=== PATIENT | male | born 1955 | race Caucasian/White ===

== ENCOUNTER 2018-04-26 05:24 | Inpatient (IN) ==
--- NOTE | 2018-04-11 08:43 | PAT Medication Instructions ---
Medication Instructions Date of Service April 11, 2018 Home Medications atorvastatin 20 mg PO QAM celecoxib [Celebrex] 100 mg PO NEEDED epinephrine [EpiPen] 1 dose IM NEEDED sumatriptan succinate [Imitrex] 1 dose PO NEEDED Continue as directed epinephrine [EpiPen] 1 dose IM NEEDED ASK your prescriber and surgeon celecoxib [Celebrex] 100 mg PO NEEDED DO NOT take the morning of surgery sumatriptan succinate [Imitrex] 1 dose PO NEEDED Take morning of surgery With a small sip of water, OTHERWISE NOTHING TO EAT OR DRINK AFTER MIDNIGHT: atorvastatin 20 mg PO QAM Other Notes If you have any questions please call us at [phone] or [phone] or [phone] or [phone]
--- NOTE | 2018-04-11 09:57 | Anesthesiology Consultation ---
Date of Service April 11, 2018 Assessment & Plan (1) Encounter for pre-operative examination: Chart Review Chart Review: Acceptable Risk for Surgery and Patient seen in Pre Admission Testing Consults Requested medical (Dr. Pascal (04/19)) Per note from PCP, patient was seen on 04/19/18 and "found the patient to be medically stable for this procedure and anesthetic agent. I have reviewed his lab work, ECG, and CXR and all look suitable at this time to proceed with his surgery." Teaching & Discussion Pre-Anesthesia Teaching/Discussion Notes: Instructed NPO after midnight before surgery, except medications with 15 cc of water. Medication instructions provided according to the PAT guidelines. History Surgery Operation Date: 04/26/18 07:30 Proposed Procedures p Robotic Prostatectomy Possible Lymphnode Dissection and Suprapubic Tube Placement - Joseph Dwyer MD Height/Weight Height: 5 ft 8 in Weight: 83.2 kg Allergies Allergy/AdvReac Type Severity Reaction Status Date / Time venom-honey bee Allergy Severe Anaphylaxis Verified 04/11/18 10:02 naproxen [From Aleve] Allergy Unknown FACIAL Verified 04/04/18 11:42 SWELLING Medications Home Medications Medication Instructions Recorded Confirmed Last Taken atorvastatin 20 mg PO QAM 04/04/18 04/04/18 04/04/18 celecoxib [Celebrex] 100 mg PO UD PRN 04/04/18 04/04/18 Unknown epinephrine [EpiPen] 1 dose IM UD PRN 04/04/18 04/04/18 Unknown sumatriptan succinate [Imitrex] 1 dose PO UD PRN 04/04/18 04/04/18 Unknown Past Medical History Medical History Afib DX 1 YR/CARDIOVERSION 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 Hyperlipidemia Prostate cancer Past Family History Family History Sister Family history of uterine cancer Other Nausea and vomiting after administration of anesthetic agent Past Surgical History Surgical History History of cardiac radiofrequency ablation SEPTEMBER 2017 - REPLACED BY [facility] History of colonoscopy History of hand surgery R History of tonsillectomy History of transesophageal echocardiography ([facility]) Past Anesthesia History No Hx of Anesthesia Complications and No Family Hx of Anesthesia Complications History of PONV No Motion Sickness Screening History of Motion Sickness: Yes (With rides that spin) Social History Smoking Status: Never smoker Do You Dip or Chew Tobacco: No Hx Alcohol Use: No Hx Substance Use: No substance use type: does not use Exercise / Class Metabolic Activity 1 > 8 Run/Swim/Ski/Tennis (Treadmill for 50 minutes x 5 days/ week. Cyclist when it is nice out. Plays tennis, raquetball, etc. Able to climb FOS. Denies SOB or CP. ) Review of Systems Patient denies chest pain, shortness of breath, dyspnea on exertion, joint pain , cough, wheezing +reflux (diet controlled) +palpitations (paroxysmal a. fib) Physical Exam Vital Signs BP: 137/88 (pt states this is high for him, he had a stressful drive in due to poor weather. Usually around 120/80) P: 80 R: 18 T: 98.1 SPO2: 97% on RA ENMT Thyromental Distance: > or= 3.5 Finger Breadths (3.5) Mallampati Class: II Neck normal visual inspection and trachea midline; neck extension not limited Respiratory normal respiratory effort Auscultation: lungs clear to auscultation bilaterally Cardiovascular Rate/Rhythm: regular rate and regular rhythm Heart Sounds: no murmur Vessels: no carotid bruit Neurologic moves all extremities Psychiatric Orientation: alert and oriented x 3 Testing Electrocardiogram Date: 04/11/18 Findings: + NSR @ (71) Nonspecific T wave abnormality. (unchanged from EKG at [facility] in September 2017) Chest X-Ray Date: 04/11/18 Findings: + NAD FINDINGS: The cardiac and mediastinal contours are normal. There is no evidence of focal pulmonary consolidation. There is no evidence of failure. No pleural effusions are visualized. IMPRESSION: No active disease in the chest. Echocardiogram Date: 09/28/17 EF: 55-60% LV Function: normal Valvular Disease: + no significant valvular disease Ascending aorta is dilated at 4.6cm (normal <4.0). Laboratory Results 04/11/18 10:34 Blood Type O Positive 04/11/18 10:34 Antibody Screen NEGATIVE 04/11/18 10:34 Urine Color [place] 04/11/18 10:34 Urine Appearance Clear (Clear) 04/11/18 10:34 Urine pH 5.5 (4.5-7.5) 04/11/18 10:34 Ur Specific [place] 1.007 (1.000-1.030) 04/11/18 10:34 Urine Protein Negative (Negative) 04/11/18 10:34 Urine Glucose (UA) Negative (Negative) 04/11/18 10:34 Urine Ketones Negative (Negative) 04/11/18 10:34 Urine Nitrite Negative (Negative) 04/11/18 10:34 Ur Leukocyte Esterase Negative (Negative) 04/11/18 10:34 04/11/18 10:34 Urine Culture - Final Urine,Clean Catch No growth - less than 1,000 colonies/mL.
--- NOTE | 2018-04-11 10:54 | XRay Report ---
XR chest Pre-admission PA/Lat CLINICAL HISTORY: Preoperative chest COMPARISON STUDY: No previous studies for comparison. FINDINGS: The cardiac and mediastinal contours are normal. There is no evidence of focal pulmonary co nsolidation. There is no evidence of failure. No pleural effusions are visualized.[ IMPRESSION: No active disease in the chest. Electronically signed by: Drake Olivera M.D. 04/11/2018 10:53 AM
[2018-04-11 12:04] LABS: Basophils # (auto) 0.02 K/uL (0-0.2); Basophils % (auto) 0.3 %; Eosinophils # (auto) 0.13 K/uL (0-0.5); Eosinophils % (auto) 2.1 %; Immature Granulocytes # (auto) 0.01 K/uL (0.00-0.02); Immature Granulocytes % (auto) 0.2 %; Lymphocytes # (auto) 2.01 K/uL (1.2-3.4); Lymphocytes % (auto) 32.4 %; Mean Corpuscular Hgb Conc 34.7 g/dL (32-36); Mean Corpuscular Volume 85.7 fL (80-100); Mean Platelet Volume 9.5 fL (7.4-10.4); Monocytes # (auto) 0.52 K/uL (0.11-0.59); Monocytes % (auto) 8.4 %; Neutrophils # (auto) 3.51 K/uL (1.4-6.5); Neutrophils % (auto) 56.6 %; Platelet Count 165 K/uL (130-400); RDW Coefficient of Variation 12.8 % (11.5-14.5); RDW Standard Deviation 40.1 fL (36.4-46.3); Red Blood Count 5.72 M/uL (4.7-6.1)
[2018-04-11 12:06] LABS: Appearance Urine Clear (Clear); Bilirubin Urine Negative (Negative); Color Urine Orange; Glucose Urine UA Negative (Negative); Ketones Urine Negative (Negative); Leukocyte Esterase Urine Negative (Negative); Nitrite Urine Negative (Negative); Protein Urine Negative (Negative); Specific Gravity Urine 1.007 (1.000-1.030); Urobilinogen Urine Negative (Negative); pH Urine 5.5 (4.5-7.5)
[2018-04-26 06:00] LABS: BUN Creatinine Ratio 14.5 (10-20); Calcium 8.1 mg/dl (8.5-10.1); Creatinine Clr Calc Pharmacy 67.5 ml/min; Est GFR (African American) 75.4; Est GFR (Non-African American) 65.1; Potassium 3.6 mmol/L (3.5-5.1)
[2018-04-26] MEDS ORDERED: ACETAMINOPHEN 1,000 MG/100 ML VIAL IV SCH (06:00)
[2018-04-26] MEDS ORDERED: LR 15ML/HR IV SCH (06:00)
[2018-04-26] MEDS ORDERED: ACETAMINOPHEN IV SCH (06:00)
[2018-04-26] MEDS ORDERED: LACTATED RINGER'S 1,000 ML IV SCH (06:00)
[2018-04-26] MEDS ORDERED: CEFAZOLIN 2000MG 2,000 MG/15 ML SYR IV SCH (06:00)
[2018-04-26] MEDS ORDERED: HEPARIN SOD 5,000 UNIT/0.5 ML VIAL SQ SCH (06:00)
--- NOTE | 2018-04-26 06:55 | History & Physical Bridge Note ---
Date of Service April 26, 2018 History & Physical Bridge Note I have examined the patient, reviewed the History & Physical and in the interval since the performance of the History & Physical I have noted the following changes of clinical significance: no changes noted
[2018-04-26] MEDS ORDERED: BUPIVACAINE 0.5 % 5 MG/1 ML MPF 30ML VIAL ONE (07:01)
[2018-04-26] MEDS ORDERED: fentaNYL citrate 100 MCG/2 ML VIAL ONE (07:12)
[2018-04-26] MEDS ORDERED: MIDAZOLAM HCL 1 MG/ML 2ML VIAL ONE (07:12)
[2018-04-26] MEDS ORDERED: ACETAMINOPHEN 1000 MG/100 ML IV IV ONE (07:14)
[2018-04-26] MEDS ORDERED: LIDOCAINE 2% JELLY 5 ML TUBE ONE (07:14)
[2018-04-26] MEDS ORDERED: ATROPINE SULFATE 0.1 MG/ML 10ML SYR IV PRN (07:49)
[2018-04-26] MEDS ORDERED: ONDANSETRON INJ 2 MG/ML 2 ML VIAL IV PRN (07:49)
[2018-04-26] MEDS ORDERED: HYDROmorphone INJ 2 MG/ML SYR/VIAL ONE (08:10)
[2018-04-26] MEDS ORDERED: ePHEDrine sulfate 50 MG/ML SYR ONE (08:17)
[2018-04-26] MEDS ORDERED: LIDOCAINE HCL 2% 2 ML VIAL/AMP(20MG/ML) INFIL ONE (08:17)
[2018-04-26] MEDS ORDERED: DEXAMETHASONE SOD INJ 4 MG/ML VIAL ONE (08:17)
[2018-04-26] MEDS ORDERED: GLYCOPYRROLATE 0.2 MG/ML VIAL ONE (08:17)
[2018-04-26] MEDS ORDERED: NEOSTIGMINE METHYLSULFATE 5 MG/5 ML SYR ONE (08:17)
[2018-04-26] MEDS ORDERED: PROPOFOL IV EMULSION 10 MG/ML 20 ML VIAL IV ONE ×2 (08:17→12:10)
[2018-04-26] MEDS ORDERED: ONDANSETRON INJ 2 MG/ML 2 ML VIAL ONE (08:17)
[2018-04-26] MEDS ORDERED: ROCURONIUM BROMIDE 10 MG/ML 5 ML VIAL ONE ×3 (08:24→12:07)
[2018-04-26] MEDS ORDERED: FLOSEAL HEMOSTATIC MATRIX 10ML TOP ONE (09:53)
[2018-04-26] MEDS ORDERED: SURGICEL ABSORB HEMOSTAT 2IN X 14IN TOP ONE (09:54)
--- NOTE | 2018-04-26 12:32 | Operative Report ---
Post Operative Report Pre & Post Diagnosis Operation Date: 04/26/18 07:30 Pre-Op Diagnosis: Prostate Cancer Post-Op Diagnosis: Prostate Cancer Procedure Operation Date: 04/26/18 07:30 Actual Procedures p Robotic prostatectomy with bilateral pelvic lymph node dissection and suprapubic tube placement(Not Applicable) - Joseph Dwyer MD Surgeon Joseph Dwyer MD Graduate Internship FAREED Mercado Estimated Blood Loss 150 Findings Consistent with Post-Op Diagnosis Specimens Prostate + SVs, L and R pelvic nodes Description of Procedure RALRP, BPLND, SPT placement I attest to the content of the Intraoperative Record and any orders documented therein. Any exceptions are noted below.
[2018-04-26] MEDS ORDERED: HYDROmorphone INJ 1 MG/ML SYRINGE ONE (12:55)
[2018-04-26] MEDS: HYDROmorphone INJ 1 MG/ML SYRINGE IV PRN ×2 (12:58→13:19)
[2018-04-26 12:59] LABS: Basophils # (auto) 0.01 K/uL (0-0.2); Basophils % (auto) 0.2 %; Eosinophils # (auto) 0.01 K/uL (0-0.5); Eosinophils % (auto) 0.2 %; Hematocrit (blood only) 44.4 % (42-52); Hemoglobin 15.6 g/dL (14.0-18.0); Immature Granulocytes # (auto) 0.01 K/uL (0.00-0.02); Immature Granulocytes % (auto) 0.2 %; Lymphocytes # (auto) 0.64 K/uL (1.2-3.4); Lymphocytes % (auto) 9.9 %; Mean Corpuscular Volume 86.5 fL (80-100); Mean Platelet Volume 8.9 fL (7.4-10.4); Monocytes # (auto) 0.11 K/uL (0.11-0.59); Monocytes % (auto) 1.7 %; Neutrophils # (auto) 5.66 K/uL (1.4-6.5); Neutrophils % (auto) 87.8 %; Platelet Count 146 K/uL (130-400); RDW Coefficient of Variation 12.8 % (11.5-14.5); RDW Standard Deviation 40.9 fL (36.4-46.3); Red Blood Count 5.13 M/uL (4.7-6.1); White Blood Count 6.44 K/uL (4.8-10.8)
[2018-04-26 13:13] LABS: Mean Corpuscular Hgb Conc 35.1 g/dL (32-36)
[2018-04-26 13:22] LABS: BUN Creatinine Ratio 12.8 (10-20); Calcium 7.9 mg/dl (8.5-10.1); Creatinine Clr Calc Pharmacy 53.6 ml/min; Est GFR (Non-African American) 49.2; Potassium 4.3 mmol/L (3.5-5.1)
--- NOTE | 2018-04-26 13:46 | Anesthesiology Progress Note ---
Date of Service April 26, 2018 Anesthesia Post Procedure Vital Signs Vital Signs: Temp Pulse Pulse Resp BP Pulse Ox 04/26/18 13:35 36.9 C 82 15 126/80 94 04/26/18 13:25 82 10 L 129/83 94 04/26/18 13:15 72 18 125/82 97 04/26/18 13:05 76 16 129/81 97 04/26/18 12:55 79 18 128/84 100 04/26/18 12:47 36.6 C 80 12 127/77 97 04/26/18 05:45 36.7 C 70 18 144/88 H 96 Pain Intensity Abdomen: Pain Intensity: 3 Notes Mental Status: alert / awake / arousable Patient Amnestic to Procedure: Yes Nausea / Vomiting: adequately controlled Pain: adequately controlled Airway Patency, RR, SpO2: stable & adequate BP & HR: stable & adequate Hydration State: stable & adequate Anesthetic Complications: no major complications apparent
[2018-04-26] MEDS ORDERED: HYDROmorphone INJ 1 MG/ML SYRINGE IV PRN (14:02)
[2018-04-26] MEDS ORDERED: ACETAMINOPHEN 1,000 MG/100 ML VIAL IV PRN (14:02)
[2018-04-26] MEDS ORDERED: OXYCODONE HCL IR 5 MG TAB (IMMEDIATE RELEASE) PO PRN ×2 (14:02)
[2018-04-26 14:13] LABS: INR 1.1 (0.9-1.1); Partial Thromboplastin Time 25.9 Seconds (21.0-31.0); Prothrombin Time 11.3 Seconds (9.0-12.0)
[2018-04-26] MEDS: ATORVASTATIN 20 MG TAB PO SCH (15:42)
[2018-04-26] MEDS: LACTATED RINGER'S 1,000 ML IV SCH (15:43)
[2018-04-26] MEDS: CEFAZOLIN 2000MG 2,000 MG/15 ML SYR IV SCH (15:43)
[2018-04-26] MEDS: ONDANSETRON INJ 2 MG/ML 2 ML VIAL IV PRN ×2 (15:43→20:47)
--- NOTE | 2018-04-26 17:10 | Operative Report ---
Post Operative Report Pre & Post Diagnosis Operation Date: 04/26/18 07:30 Pre-Op Diagnosis: De Leon 5+4 prostate Cancer with a preoperative PSA of 6 Post-Op Diagnosis: Same. Surgeon: Dr. Joseph Dwyer. Anesthesia: General anesthesia with endotracheal intubation plus local at port sites. Hydrochloric Manufacturing Supervisor: LAILA Cooper, LAILA Huggins. Assistance of present throughout the case with the passage of instruments and sutures, placement of hemostatic agents, retraction, suction, tissue exposure, bedside assistance in general patient safety. Drains left in place: #10 DONALDO drain in the left lower quadrant, 18 Bahamian silicone Flood with 10 cc of sterile water in the balloon per meatus, 16 [place]ian silicone suprapubic tube with 10 cc of sterile water in the balloon. Estimated blood loss: 50 cc. IV fluids: 1800 cc of crystalloid. Complications: None. Findings: Watertight anastomosis with suprapubic tube present within the bladder lumen, paucity of lymphoid tissue in the obturator fossa bilaterally. Procedure Operation Date: 04/26/18 07:30 Actual Procedures p Robotic prostatectomy with bilateral pelvic lymph node dissection (Not Applicable) - Joseph Dwyer MD s suprapubic tube placement(Not Applicable) - Joseph Dwyer MD Brief history: Patient is a pleasant 62-year-old male who is status post prostate biopsy for PSA of 6. This has demonstrated a number of scattered areas of Ashley 3+3 adenocarcinoma but more worrisome in the right mid prostate is an area of De Leon 5+4. Patient has had negative staging studies for metastasis. After discussion of risks and benefits of various forms of intervention patient is decided upon robotic prostatectomy to manage this disease. Please see H&P for further details. Intravenous cephalosporins are provided for antibiotic coverage and SCDs as well as subcutaneous heparin were used for DVT prophylaxis. Intravenous Tylenol is provided for perioperative analgesia. Informed consent reviewed with the patient and family preoperatively today. Procedure: Patient was properly identified and brought into the operative suite after identification of appropriate consent in the the chart. General anesthesia with endotracheal intubation was initiated and patient was prepped and draped in the standard fashion for this procedure. Full timeout procedure was followed. A sterile Flood catheter was placed. All port sites were anesthetized with local prior to incision. A 12 mm transverse incision was made in the supraumbilical location and the abdomen was entered under direct visualization using a 0 degree laparoscope and a 12 degree visual obturator. Abdomen was insufflated to 15 mmHg and surveyed demonstrating no worrisome intra -abdominal variance or evidence of injury on trocar placement. Ports were placed for a fourth arm robotic template including 2 left-sided 7 mm ports, one right-sided 7 mm port, and a 5 and 12 mm first assistant manager port. Patient was placed in Trendelenburg and robot was brought in and docked. 0 degree lens was used to drop the bladder down to the level of the pubic bone and the prostate was defatted. Minimal periprosthetic fat was appreciated and therefore it was not needed to be sent as a specimen. Patient was appreciated to have an accessory vessel on the right-hand side running from the distal bladder to the pubic bone. There was a question of cavernosal branches arising from this vessel and therefore was preserved until the end of the case intact. Endopelvic fascia was sharply entered on both sides and dissection was carried out to the level of the apex of the prostate gland. Dorsal venous complex was skeletonized and then controlled using 0 Vicryl suture in a [id number] fashion. After this was complete the neurovascular bundle was identified on the left-hand side and partially dissected free from the prostate gland. On the right-hand side a partial resection was carried out. 30 degrees down lens was placed bladder neck was placed on traction using the fourth arm. A vascular bladder neck was skeletonized down to the level of the Flood catheter which was then placed within the fourth arm and used for anterior traction on the prostate. Posterior bladder neck was divided and dropped in the midline and dissection was carried down to the level of the vas deferens in the midline these were circumscribed and divided and the seminal vesicles were dissected free. Rectum was dropped in the midline down to the level of the apex of the prostate. Prostatic pedicles were controlled using Weck clips on both sides and divided. Meticulous nerve sparing dissection was carried out on the left-hand side to the level of the apex of the prostate. Partial nerve sparing dissection was carried out on the right-hand side with the patient's high-grade disease was present. After this was complete the dorsal venous complex was divided and the urethra was skeletonized. Some inflamed periprosthetic tissue at the level of the apex of the prostate and the right prostate was appreciated. Rectourethralis fibers were divided and the prostate was delivered from the pelvis and placed within an Endo Catch bag in the abdominal cavity for retrieval at the end of the case. Rectum was insufflated under saline irrigation to ensure lack of injury. The right neurovascular bundle was oversewn with a 3-0 Vicryl for additional hemostasis due to some oozing. After this was complete FloSeal tissue sealant was placed over the prostatic bed. Attention was then turned to the obturator lymph node packets on both sides. These were dissected free using the external iliac vein, pelvic sidewall and obturator nerve as landmarks for the dissection. Weck clips were used for control of lymphatics as well as Bovie cautery for small vessels. Due to the patient's thin body habitus a relative paucity of lymphatic tissue was appreciated with the tissue excised was sent for pathologic analysis. Excellent hemostasis was obtained after this was complete. A double-armed V lock suture was then introduced and used to create a circumferential running anastomosis between the bladder and urethra. An 18 Bahamian silicone catheter was visualized entering the bladder prior to completion of closure. This was tested with greater than 160 cc of sterile irrigant noted to be watertight. A small suprapubic incision was made and a suprapubic tube was introduced under direct visualization using the robot. This was inserted into the bladder and a 16 [place]amian silicone catheter was placed via the trocar with 10 cc of sterile water in the balloon. Flood catheter was able to be irrigated via the suprapubic tube and vice versa. Fourth arm was removed and a #10 DONALDO drain was brought in via the fourth arm port. This was placed within the confines of the pelvis while avoiding placing it directly over the anastomosis. Robotic instruments were removed and the robot was de-docked. The camera was brought in via the first assistant manager 12 mm port and the string to the Endo Catch bag was brought out through the supraumbilical incision. Ports were removed and abdomen was desufflated. Supraumbilical incision was enlarged sufficiently to allow for easy removal of the specimen bag. This was closed using 0 Vicryl suture on a UR 5 needle and 3-0 Vicryl and subcutaneous tissues. Fascia was visible through the 7 and 12 mm ports and closed using an 0 Vicryl suture on a UR 5 needle. 2-0 silk was used to secure the DONALDO drain and suprapubic tube in place. 4-0 Monocryl was used to close the skin followed by Dermabond dressing. Excess carbon dioxide gas had been removed from the abdomen prior to completion of closure. Anesthesia was reversed and patient was transferred to the recovery room in stable condition. Follow-up CARE: Patient will be admitted to the floor for standard postoperative management. Surgeon Joseph Dwyer MD Hydrochloric Manufacturing Supervisor FAREED Mercado Estimated Blood Loss 150 Findings Consistent with Post-Op Diagnosis Specimens Prostate plus seminal vesicles, left pelvic lymph nodes, right pelvic lymph nodes. Description of Procedure Robotic prostatectomy, bilateral pelvic lymph node dissection, suprapubic tube placement. I attest to the content of the Intraoperative Record and any orders documented therein. Any exceptions are noted below.
[2018-04-26] MEDS: FAMOTIDINE 20 MG in SYRINGE 3 ML IV SCH (18:58)
[2018-04-26] MEDS: DOCUSATE SODIUM 100 MG CAP PO SCH (20:47)
[2018-04-26] MEDS: HEPARIN SOD 5,000 UNIT/0.5 ML VIAL SQ SCH (21:04)
[2018-04-27] MEDS: CEFAZOLIN 2000MG 2,000 MG/15 ML SYR IV SCH ×2 (00:27→08:00)
[2018-04-27] MEDS: LACTATED RINGER'S 1,000 ML IV SCH ×2 (00:36→13:22)
[2018-04-27] MEDS: FAMOTIDINE 20 MG in SYRINGE 3 ML IV SCH (05:39)
[2018-04-27 06:34] LABS: Basophils # (auto) 0.01 K/uL (0-0.2); Basophils % (auto) 0.1 %; Eosinophils # (auto) 0.01 K/uL (0-0.5); Eosinophils % (auto) 0.1 %; Hematocrit (blood only) 40.5 % (42-52); Hemoglobin 13.9 g/dL (14.0-18.0); Immature Granulocytes # (auto) 0.02 K/uL (0.00-0.02); Immature Granulocytes % (auto) 0.2 %; Lymphocytes # (auto) 2.01 K/uL (1.2-3.4); Lymphocytes % (auto) 21.3 %; Mean Corpuscular Hgb Conc 34.3 g/dL (32-36); Mean Corpuscular Volume 86.4 fL (80-100); Mean Platelet Volume 9.2 fL (7.4-10.4); Monocytes # (auto) 0.93 K/uL (0.11-0.59); Monocytes % (auto) 9.9 %; Neutrophils # (auto) 6.45 K/uL (1.4-6.5); Neutrophils % (auto) 68.4 %; Platelet Count 147 K/uL (130-400); RDW Standard Deviation 40.8 fL (36.4-46.3); Red Blood Count 4.69 M/uL (4.7-6.1); White Blood Count 9.43 K/uL (4.8-10.8)
[2018-04-27 07:06] LABS: BUN Creatinine Ratio 14.9 (10-20); Calcium 7.9 mg/dl (8.5-10.1); Creatinine Clr Calc Pharmacy 66.9 ml/min; Est GFR (African American) 74.7; Est GFR (Non-African American) 64.4; Potassium 3.8 mmol/L (3.5-5.1)
--- NOTE | 2018-04-27 07:08 | Urology Progress Note ---
Date of Service April 27, 2018 Assessment & Plan (1) Prostate CA: A/P 62 yo male POD#1 s/p RALRP, BPLND, SPT placement. Doing well Advance diet and activity. Postop bump in Cr improving - hydration IV until noon. DC schafer today. Anticipate DC DONALDO and DC home after lunch. DC instructions reviewed. Subjective 62 yo male POD#1 s/p RALRP, BPLND, SPT placement. No complaints, chacha clears, ambulatory yesterday. Feels well, resting comfortably. No new c/o. Constitutional: no fever and no chills Ear, Nose, Mouth, Throat: no ear pain Respiratory: no hemoptysis Cardiovascular: no chest pain Gastrointestinal: no nausea and no vomiting Integumentary: no acne and no boil Neurologic: no paralysis and no numbness Psychiatric: no hopelessness Hematologic / Lymphatic: no lymphadenopathy Physical Exam 2 Vital Signs (Past 24 Hours): Last Vital Signs Temp 36.8 C 04/27/18 04:00 Pulse 77 04/27/18 04:00 Resp 18 04/27/18 04:00 BP 109/65 04/27/18 04:00 Pulse Ox 95 04/27/18 04:00 Constitutional: WD/WN, vitals as above ENMT: Nose: no external nose abnormality Neck: trachea midline; no anterior neck swelling Respiratory: normal respiratory effort; no respiratory distress and does not use accessory muscles Cardiovascular: Vessels: radial pulses present Gastrointestinal (Abdomen): Percussion/Palpation: abdomen soft; abdomen nontender and no guarding inc c/d/i, SPT and DONALDO in place Musculoskeletal: Head/Neck/Chest: normocephalic and head atraumatic Skin: normal turgor Neurologic: awake; not obtunded Psychiatric: Orientation: oriented x 3 Lymphatic: no lymphadenopathy Results & Data Laboratory Results Laboratory Results - last 48 hr 04/26/18 04/26/18 04/26/18 05:38 05:38 12:50 WBC 6.44 RBC 5.13 Hgb 15.6 Hct 44.4 MCV 86.5 MCH 30.4 MCHC 35.1 RDW Std Deviation 40.9 RDW Coeff of Sirisha 12.8 Plt Count 146 MPV 8.9 Immature Gran % (Auto) 0.2 Neut % (Auto) 87.8 Lymph % (Auto) 9.9 Howard % (Auto) 1.7 Eos % (Auto) 0.2 Baso % (Auto) 0.2 Immature Gran # (Auto) 0.01 Neut # (Auto) 5.66 Lymph # (Auto) 0.64 L Howard # (Auto) 0.11 Eos # (Auto) 0.01 Baso # (Auto) 0.01 PT INR APTT PTT Ratio Sodium 139 Potassium 3.6 Chloride 106 Carbon Dioxide 32 Anion Gap 1.0 L BUN 17 Creatinine 1.19 Est Cr Clr Drug Dosing 67.5 Est GFR ( Amer) 75.4 Est GFR (Non-Af Amer) 65.1 BUN/Creatinine Ratio 14.5 Glucose 103 H Calcium 8.1 L Hepatitis C Ab Screen Neg 04/26/18 04/26/18 04/27/18 12:50 13:46 06:21 WBC 9.43 RBC 4.69 L Hgb 13.9 L Hct 40.5 L MCV 86.4 MCH 29.6 MCHC 34.3 RDW Std Deviation 40.8 RDW Coeff of Sirisha 13.0 Plt Count 147 MPV 9.2 Immature Gran % (Auto) 0.2 Neut % (Auto) 68.4 Lymph % (Auto) 21.3 Howard % (Auto) 9.9 Eos % (Auto) 0.1 Baso % (Auto) 0.1 Immature Gran # (Auto) 0.02 Neut # (Auto) 6.45 Lymph # (Auto) 2.01 Howard # (Auto) 0.93 H Eos # (Auto) 0.01 Baso # (Auto) 0.01 PT 11.3 INR 1.1 APTT 25.9 PTT Ratio 1.0 Sodium 140 Potassium 4.3 D Chloride 106 Carbon Dioxide 28 Anion Gap 5.0 BUN 19 H Creatinine 1.50 H D Est Cr Clr Drug Dosing 53.6 Est GFR ( Amer) 57.0 Est GFR (Non-Af Amer) 49.2 BUN/Creatinine Ratio 12.8 Glucose 152 H Calcium 7.9 L Hepatitis C Ab Screen 04/27/18 06:21 WBC RBC Hgb Hct MCV MCH MCHC RDW Std Deviation RDW Coeff of Sirisha Plt Count MPV Immature Gran % (Auto) Neut % (Auto) Lymph % (Auto) Howard % (Auto) Eos % (Auto) Baso % (Auto) Immature Gran # (Auto) Neut # (Auto) Lymph # (Auto) Howard # (Auto) Eos # (Auto) Baso # (Auto) PT INR APTT PTT Ratio Sodium 141 Potassium 3.8 Chloride 107 Carbon Dioxide 30 Anion Gap 4.0 BUN 18 Creatinine 1.20 D Est Cr Clr Drug Dosing 66.9 Est GFR ( Amer) 74.7 Est GFR (Non-Af Amer) 64.4 BUN/Creatinine Ratio 14.9 Glucose 98 Calcium 7.9 L Hepatitis C Ab Screen
[2018-04-27] MEDS: DOCUSATE SODIUM 100 MG CAP PO SCH (09:14)
[2018-04-27] MEDS: ATORVASTATIN 20 MG TAB PO SCH (09:14)
[2018-04-27] MEDS: HEPARIN SOD 5,000 UNIT/0.5 ML VIAL SQ SCH (09:15)
[2018-04-27] MEDS ORDERED: TRAMADOL HCL 50 MG TABLET PO PRN (09:21)
--- NOTE | 2018-04-27 10:03 | Anesthesiology Progress Note ---
Date of Service April 27, 2018 Anesthesia Post Procedure Vital Signs Vital Signs: Temp Pulse Pulse Pulse Resp BP BP 04/27/18 07:35 36.7 C 78 16 118/72 04/27/18 04:00 36.8 C 77 18 109/65 04/26/18 23:04 37.1 C 79 18 105/68 04/26/18 16:22 36.4 C L 86 16 110/75 04/26/18 15:44 36.7 C 87 16 115/74 04/26/18 14:58 90 16 113/72 04/26/18 14:05 36.9 C 82 18 117/73 04/26/18 13:45 84 17 119/74 04/26/18 13:35 36.9 C 82 15 126/80 04/26/18 13:25 82 10 L 129/83 04/26/18 13:15 72 18 125/82 04/26/18 13:05 76 16 129/81 04/26/18 12:55 79 18 128/84 04/26/18 12:47 36.6 C 80 12 127/77 Pulse Ox 04/27/18 07:35 94 04/27/18 04:00 95 04/26/18 23:04 95 04/26/18 16:22 92 04/26/18 15:44 91 04/26/18 14:58 91 04/26/18 14:05 93 04/26/18 13:45 95 04/26/18 13:35 94 04/26/18 13:25 94 04/26/18 13:15 97 04/26/18 13:05 97 04/26/18 12:55 100 04/26/18 12:47 97 Pain Intensity Abdomen: Pain Intensity: 2 Notes Mental Status: alert / awake / arousable Patient Amnestic to Procedure: Yes Nausea / Vomiting: improving with treatment Pain: adequately controlled Airway Patency, RR, SpO2: stable & adequate BP & HR: stable & adequate Hydration State: stable & adequate Anesthetic Complications: no major complications apparent
--- NOTE | 2018-04-30 17:02 | Discharge Summary ---
Date of Service April 30, 2018 Admission HPI Per Admitting Provider 62 yo male with prostate cancer being admitted for robotic prostatectomy. Please see H&P for further details. Admission Exam (Per Admitting) Constitutional WD/WN, vitals as above ENMT Nose: no external nose abnormality Neck trachea midline; no anterior neck swelling Respiratory normal respiratory effort; no respiratory distress and does not use accessory muscles Cardiovascular Vessels: radial pulses present Gastrointestinal (Abdomen) Percussion/Palpation: abdomen soft; abdomen nontender and no guarding Musculoskeletal Head/Neck/Chest: normocephalic and head atraumatic Skin normal turgor Neurologic awake; not obtunded Psychiatric Orientation: oriented x 3 Lymphatic no lymphadenopathy Specialty Data Urology See OP note for further details. Discharge Data Procedures Performed Operation Date: 04/26/18 07:30 Actual Procedures p Robotic prostatectomy with bilateral pelvic lymph node dissection (Not Applicable) - Joseph Dwyer MD s suprapubic tube placement(Not Applicable) - Joseph Dwyer MD Hospital Course (1) Prostate CA: A/P 62 yo male POD#1 s/p RALRP, BPLND, SPT placement. Doing well Advance diet and activity. Postop bump in Cr improving - hydration IV until noon. DC schafer today. Anticipate DC DONALDO and DC home after lunch. DC instructions reviewed. Discharge Instructions See DC instruction list
== END 2018-04-27 14:31 | disposition home or self-care (01) ==
LOC: ASU 05:24 → 3W 12:30